=== PATIENT | male | born 1950 | race Caucasian/White ===

== ENCOUNTER 2024-02-02 16:19 | Inpatient (IN) | payer OTHER, SELFPAY ==
[2024-02-02 12:59] VITALS: BP 137/83
[2024-02-02 13:03] VITALS: BMI 22.5
[2024-02-02 13:34] LABS: % Basophils 0.5 % (0-2); % Eosinophils 0.6 % (0-6); % Immature Granulocytes 0.5 % (0-0.5); % Lymphocytes 5.5 % (20.5-51.1); % Neutrophils 86.9 % (42.2-75.2); Absolute Basophils 0.1 10^3/uL (0-0.2); Absolute Eosinophils 0.1 10^3/uL (0-0.7); Absolute Immature Granulocytes 0.1 10^3/uL (0-0.05); Absolute Lymphocytes 0.9 10^3/uL (1.2-3.4); Absolute Neutrophils 14.3 10^3/uL (1.4-6.5); Hematocrit 36.6 % (39.0-52.0); Hemoglobin 11.9 g/dL (13.0-18.0); Mean Corp Hgb Conc. 32.5 g/dL (33.0-37.0); Mean Corpuscular Hgb 32.9 pg (27.0-31.0); Mean Corpuscular Volume 101.1 fL (80.0-94.0); Mean Platelet Volume 9.2 fL (7.4-10.4); Nucleated Red Blood Cells % 0 % (-); Platelet Count 232 10^3/uL (130-400); Red Blood Cell Count 3.62 10^6/uL (4.70-6.10); Red Cell Dist. Width 13.7 % (11.5-14.5); White Blood Cell Count 16.4 10^3/uL (4.8-10.8)
[2024-02-02 14:00] VITALS: BP 140/87
[2024-02-02 14:14] LABS: Blood Urea Nitrogen 19 mg/dl (9-20); Carbon Dioxide 26 mmol/L (22-30); Chloride 98 mmol/L (98-107); Glucose 101 mg/dl (70-99); Sodium 138 mmol/L (135-145); eGFR 15.52
[2024-02-02 14:17] LABS: COVID-19 Antigen Negative (Negative)
--- NOTE | 2024-02-02 14:39 | ED.GENMED ---
History of Present Illness
General
Chief Complaint: Weakness
Source: patient and halfway records
Exam Limitations: none
Time Seen by Provider: 02/02/24 14:13
Nursing documentation reviewed up to this point in time: agreed with
Travel History
Have you had any contact with someone who has COVID-19?: No
Do you have any symptoms of coronavirus? Fever > 100 degrees, chills, cough, shortness of breath, sore throat, loss of taste or smell, muscle aches, or headache?: Yes
Symptoms:: cough
History of Present Illness
History of Present Illness:
73-year-old male from [facility] with history of HTN, ESRD on HD, CVA, gout, HTN, malnutrition, depression ,right knee replacement presents stating he has had a coarse junky cough over the past 24 hours. Denies fever/chills, denies n/v/d/c.
Past History
Past History
ED Past Medical History: CVA, HTN, Renal failure (hemodialysis) and Psychiatric (depression)
ED Past Surgical History: Orthopedic
Review of Systems
Review of Systems
Allergies reviewed?: Yes
All Other Systems: ROS reviewed and negative except as documented in HPI and ROS
Constitutional: Reports chills; Denies fever
EENT: Denies sore throat
Respiratory: Reports cough; Denies trouble breathing
Cardiac: Denies chest pain
ABD/GI: Denies abdominal pain, nausea, vomiting or diarrhea
: Denies dysuria, difficulty voiding or discharge
Musculoskeletal: Reports other (does not ambulate); Denies edema
Skin: Reports other (Right upper chest wall dialysis catheter)
Neurological: Reports no symptoms
Phy Exam
Physical Exam
Physical Exam:
GENERAL: No acute distress. A&Ox3.
CONSTITUTIONAL: 102.0 Rectal
EYES: clear, conjunctivae normal
Neck: Supple
ENMT: moist mucus membranes
RESPIRATORY: Regular respirations, nonlabored, lungs clear. coarse upper airway only sounds, Coarse junky cough, productive, pt swallowing phlegm.
CARDIOVASCULAR: Regular rate and rhythm, no murmurs, no rubs.
GI: Soft, nontender, normal BS
MUSCULOSKELETAL: Moves with ease. Well perfused.
SKIN: Warm, dry, pink, R upper chest wall dialysis catheter, intact, surrounding skin is normal, no swelling, erythema
PSYCH: Normal mood and affect. Well kept, interactive and appropriate
NEUROLOGIC: Awake, alert and oriented. No focal neurological deficits
Course
Orders/Labs/Results
Orders:
Orders
02/02/24 13:23
Basic Metabolic Panel Urgent
CBC/With Diff [Complete Blood Count/With Diff] Urgent
COVID-19 Antigen Urgent
Source: Nasal Swab
02/02/24 13:45
CXR2 [CR Chest - 2 Views ] Urgent
Comment:
Reason For Exam: cough
02/02/24 14:54
CefTRIAXone [Rocephin] 1,000 mg IV NOW STA
02/02/24 Dinner
Regular
At Your Request: Full Participation
02/02/24 15:07
Lactic Acid Q4H
Comment: CANCEL 2nd LACTIC ACID IF 1st LACTIC ACID IS LESS THAN 2
Blood Culture Q30M
ABELINO Source: Blood/Venous
Specimen Description:
Blood Culture Q30M
ABELINO Source: Blood/Venous
Specimen Description:
02/02/24 15:10
Acetaminophen [Tylenol] 1,000 mg PO NOW STA
02/02/24 15:13
Sterile Water [Sterile Water For Injection] 10 ml .ROUTE .[facility]
02/02/24 15:33
INFECTIOUS DISEASE CONSULT Routine
Consulting Provider: Gracia Gee
Was physician already notified: Yes
Reason for consult: sepsis
NEPHROLOGY CONSULT Routine
Consulting Provider: Mariposa Hartley
Was physician already notified: Yes
Reason for consult: ESRD HD
02/02/24 15:50
0.9% Sodium Chloride 500 ml [Nss] 500 ml IV BOLUS
02/02/24 15:52
Admit/Transfer Patient As Directed
Co-Sign Provider:
Level of Care: Inpatient admission
Assign to:: Medical/Surgical
Physician / Group: Elaine
Diagnosis: sepsis
Reason for Hospitalization: sepsis
Expected length of stay greater than two midnights?: Yes
ELOS- Estimated Length of Stay in days: 5
I certify the patient meets the requirements for IP care: Yes
02/02/24 15:53
Vancomycin [Vancocin] 1,500 mg 0.9% Sodium Chloride [Nss] 20 ml 0.9% Sodium Chloride 250 ml [Nss] 250 ml IV NOW
02/02/24 15:55
Code Status As Directed
Resuscitation Status: Do not resuscitate
Reached after discussion with pt or family/Healthcare POA: Yes
02/02/24 15:56
DNR Bracelet Application ONCE
02/02/24 16:00
Cefepime HCl [Maxipime] 1,000 mg IV Q24H
Sterile Water [Sterile Water For Injection] 10 ml IV Q24H
VANCOMYCIN Pharmacy to Dose [VANCOCIN Pharmacy to Dose] 1 each Pharmacy To Prepare [Call Pharmacy To Prepare] 0 ml IV PER PROTOCOL
02/02/24 17:36
0.9% Sodium Chloride 1000 ml [Nss] 1,000 ml IV 125 mls/hr
Acetaminophen [Tylenol] 650 mg PO Q8H PRN
Acetaminophen [Tylenol] 650 mg PO TID
Bisacodyl [Dulcolax] 10 mg RECTAL DAILYPRN PRN
Heparin 5,000 units SC Q8
Nicotine [Nicoderm Transdermal] 14 mg TRANSDERM DAILY
Polyethylene Glycol Powder [Miralax] 17 grams PO DAILYPRN PRN
sodium polystyrene sulfonate 60 ml PO DAILYPRN PRN
02/02/24 17:36
Activity As Directed
Activity Level: With Assistance
Intake/ Output As Directed
Frequency: Per unit guidelines
Vital Signs As Directed
Frequency: Per unit guidelines
O2 Therapy [RESP] Routine
Nasal Cannula Liter Flow: 2 LPM
Titrate/Wean O2 to maintain O2 sat greater than (%): 91
DX Deep Vein Thrombosis Video Routine
02/02/24 18:00
Midodrine [ProAmatine] 5 mg PO BID@1200,1800
Tamsulosin [Flomax] 0.4 mg PO QPM
02/02/24 19:00
Calcium Acetate [Phoslo] 1,334 mg PO MEALS
02/03/24 01:36
Lactic Acid Q4H
Comment: repeat q4 hours x 4 or until less than 2 mmol/L
02/03/24 05:36
Lactic Acid Q4H
Comment: repeat q4 hours x 4 or until less than 2 mmol/L
02/03/24 06:00
Basic Metabolic Panel IN AM
Complete Blood Count/With Diff IN AM
Vancomycin Random IN AM
02/03/24 08:00
Allopurinol [Zyloprim] 100 mg PO DAILY
Atorvastatin [Lipitor] 10 mg PO DAILY
Docusate Sodium [Colace] 200 mg PO DAILY
Ferrous Sulfate [Feosol] 325 mg PO DAILY
Metoprolol Xl [Toprol Xl] 50 mg PO DAILY
Polyethylene Glycol Powder [Miralax] 17 grams PO DAILY
02/03/24 09:00
Midodrine [ProAmatine] 5 mg PO SUTUTHSA@0900
02/04/24 06:00
Basic Metabolic Panel IN AM
Complete Blood Count/With Diff IN AM
02/05/24 06:00
Basic Metabolic Panel IN AM
Complete Blood Count/With Diff IN AM
Midodrine [ProAmatine] 5 mg PO MOWEFR@0600
02/06/24 06:00
Basic Metabolic Panel IN AM
Complete Blood Count/With Diff IN AM
02/07/24 06:00
Basic Metabolic Panel IN AM
Complete Blood Count/With Diff IN AM
02/08/24 06:00
Basic Metabolic Panel IN AM
Complete Blood Count/With Diff IN AM
02/09/24 06:00
Basic Metabolic Panel IN AM
Complete Blood Count/With Diff IN AM
Abnormal Lab Results
02/02/24
13:23
WBC 16.4 H 10^3/uL
(4.8-10.8)
RBC 3.62 L 10^6/uL
(4.70-6.10)
Hgb 11.9 L g/dL
(13.0-18.0)
Hct 36.6 L %
(39.0-52.0)
MCV 101.1 H fL
(80.0-94.0)
MCH 32.9 H pg
(27.0-31.0)
MCHC 32.5 L g/dL
(33.0-37.0)
Abs Immat Gran (auto) 0.1 H 10^3/uL
(0-0.05)
Absolute Neuts (auto) 14.3 H 10^3/uL
(1.4-6.5)
Absolute Lymphs (auto) 0.9 L 10^3/uL
(1.2-3.4)
Absolute Monos (auto) 1.0 H 10^3/uL
(0.1-0.6)
Neutrophils % 86.9 H %
(42.2-75.2)
Lymphocytes % 5.5 L %
(20.5-51.1)
Creatinine 3.9 H mg/dL
(0.7-1.3)
Glucose 101 H mg/dl
(70-99)
02/02/24 13:23
02/02/24 13:23
Vital Signs
Initial and Last Documented VS:
Initial Vital Signs
Temp Pulse Resp BP Pulse Ox
98.1 F 99 18 137/83 95
02/02/24 12:59 02/02/24 12:59 02/02/24 12:59 02/02/24 12:59 02/02/24 12:59
Last Documented Vital Signs
Temp Pulse Resp BP Pulse Ox
98.3 F 92 16 144/87 96
02/02/24 18:24 02/02/24 18:24 02/02/24 18:24 02/02/24 18:24 02/02/24 18:24
MDM/Problems Addressed
Differential Diagnosis Includes:
PNA, COPD
MDM/Problems Addressed:
73-year-old male from [facility] with history of HTN, ESRD on HD, CVA, gout, HTN, malnutrition, depression ,right knee replacement presents stating he has had a coarse junky cough over the past 24 hours. Denies fever/chills, denies n/v/d/c..
Temp 102 R for this examiner, coarse junky cough
1430:
CBC: WBC 16.4
CMP: No clinically significant abnormality, consistent with his ESRD
Rapid COVID test is negative
CXR: Radiology report read: IMPRESSION:
1. Clear lungs.
2. No significant change compared to prior study.
Pulse ox 88% RA placed on O2 2L NC improved to 93%
Plan: Admit: Pneumonia, hypoxemia: IV antibiotics, blood cultures pending.
Hospitalist notified of admission
*Critical Care Note
Total Time (30-74mins, 75-104mins- exclusive of procedures): Not Applicable
ED Attending Note
-
Portions of this chart may have been created with voice recognition software.� Occasional wrong word or��sound alike� substitutions may have occurred due to the inherent limitations of voice recognition software.
Discharge Plan
Departure
Patient Disposition: Admit
Date of Disposition: 02/02/24
Time of Disposition: 15:03
Admit to: Med/Surg
Presentation/result/management discussed w/ accepting MD/DO: Hospitalist
Condition: Fair
Discharge Problem:
End stage renal disease, Pneumonia
Interventions
Interventions:
*Risk Screen - Suicide Last Done: 02/02/24 12:59
*General Assessment Last Done: 02/02/24 12:59
*Neglect/Abuse Screening Last Done: 02/02/24 12:59
ED- Fall Risk Assessment Last Done: 02/02/24 13:03
*ED COVID-19 Vaccine History Last Done: 02/02/24 15:17
*Nursing Disposition Last Done: 02/02/24 17:31
ED- Cardiac Assessment Last Done: 02/02/24 13:03
ED- Neurological Assessment Last Done: 02/02/24 13:03
ED- Pulmonary Assessment Last Done: 02/02/24 13:03
Discharge Date and Time
Discharge Date/Time: 02/02/24 17:32
[2024-02-02] MEDS: ROCEPHIN 1000 MG IV (15:14)
[2024-02-02] MEDS: TYLENOL 1000 MG PO (15:15)
[2024-02-02 15:18] VITALS: BP 103/81
--- NOTE | 2024-02-02 15:22 | HPS.HSE ---
Family Physician
-
Family Physician:
Chief Complaint
-
weakness
History of Present Illness
73 y/o M with PMHx:
ESRD on HD
Anemia of chronic disease
Hyperlipidemia
Chronic pain syndrome
Essential hypertension
Gout
BPH
who presents with fever and felt weak. He also reports dry cough. He does make some urine but denies any change in frequency or consistency of the urine. Denies dysuria or hematuria. Denies chest pain, shortness of breath, palpitations. He does
report some lightheadedness. Denies any headache or neck stiffness. Denies any nausea, vomiting, diarrhea. Patient is a fairly poor historian.
Medical History
Past Medical History
Past Medical History: Reports Other (as per HPI)
Past Surgical History: Reports Other (N/A)
Social History
Tobacco: Smoker
Alcohol: None
Drug: None
Family History
Family History: Not pertinent
Allergies / Home Medications
Allergies reflects when Allergies were last updated in [employer].
Home Medications with original date entered in [employer]
Allergy/Medication List:
Allergies
Allergy/AdvReac Type Severity Reaction Status Date / Time
No Known Allergies Allergy Verified 02/02/24 12:58
Home Medications
acetaminophen 325 mg tablet 650 mg PO Q8H PRN fever>100.4 06/08/23
atorvastatin 10 mg tablet 10 mg PO DAILY High Cholesterol 06/08/23
bisacodyl 10 mg rectal suppository (Dulcolax (bisacodyl)) 10 mg [place] DAILY PRN if sorbitol is ineffective 06/08/23
calcium acetate(phosphat bind) 667 mg capsule 1,334 mg PO MEALS Kidney Disease 06/08/23
docusate sodium 100 mg capsule (Colace) 200 mg PO DAILY Constipation 06/08/23
ferrous sulfate 325 mg (65 mg iron) tablet 325 mg PO DAILY Supplement 06/08/23
metoprolol succinate 50 mg tablet,extended release 24 hr 50 mg PO DAILY Blood Pressure 06/08/23
midodrine 5 mg tablet 5 mg PO MOWEFR@0600 Blood Pressure 06/08/23
nicotine 14 mg/24 hr daily transdermal patch 1 patch transdermal DAILY Smoking Cessation 06/08/23
polyethylene glycol 3350 17 gram oral powder packet (Miralax) 17 g PO DAILY Constipation 06/08/23
sorbitol 70 % solution 30 ml PO DAILYPRN PRN constipation 06/08/23
tamsulosin 0.4 mg capsule 0.4 mg PO QPM Urinary Issue 06/08/23
torsemide 20 mg tablet 20 mg PO Q48H Fluid Retention/Swelling 06/08/23
trazodone 100 mg tablet 100 mg PO HS Sleep 06/08/23
allopurinol 100 mg tablet 100 mg PO DAILY #30 tabs 06/20/23
acetaminophen 325 mg tablet 650 mg PO TID 09/20/23
mirtazapine 15 mg tablet 22.5 mg PO HS 09/20/23
vancomycin 750 mg/150 mL in 0.9% sodium chloride intravenous piggyback 750 mg (150 mL) IV ONCE #0 mL 09/29/23
melatonin 5 mg tablet 5 mg PO HS 02/02/24
midodrine 5 mg tablet 5 mg PO BID@1200,1800 02/02/24
midodrine 5 mg tablet 5 mg PO SUTUTHSA@0900 02/02/24
oxycodone 5 mg tablet 5 mg PO Q4HPRN PRN moderate pain 02/02/24
polyethylene glycol 3350 17 gram oral powder packet (Miralax) 17 g PO DAILYPRN PRN constipation 02/02/24
sodium polystyrene sulfonate 15 gram/60 mL oral suspension 60 ml PO DAILYPRN PRN missed dialysis 02/02/24
Review of Systems
-
History Source: Patient
A 12 point ROS was completed and negative except as noted: Yes
Physical Exam
Vital Signs
Vital Signs
Temp Pulse Resp BP Pulse Ox
102 F H 80 26 140/87 87
02/02/24 15:05 02/02/24 14:00 02/02/24 14:00 02/02/24 14:00 02/02/24 15:15
Physical Exam
General: Other (.)
Laboratory Results
-
02/02/24 13:23
02/02/24 13:23
Laboratory Results
Total Bilirubin Cancelled 02/02/24 13:23
AST Cancelled 02/02/24 13:23
ALT Cancelled 02/02/24 13:23
Alkaline Phosphatase Cancelled 02/02/24 13:23
Impression/Plan
-
Gen: NAD, AAOx3. Appears chronically ill.
Eyes: EOMI, PERRLA, no scleral icterus.
Neck: supple.
CV: RRR, +S1/S2, no m/r/g.
Resp: CTAB, no rales, wheezes, or rhonchi.
Abd: +BS, soft, NT, ND
Skin: No rashes.
Neuro: CN 2-12 intact, non-focal.
Psych: Flat affect.
CXR: Clear lungs. No significant change compared to prior study.
Sepsis:
-With acute metabolic encephalopathy
-CXR clear
-h/o sepsis due to HD cath in September 2023
-IV Vanco/Cefepime
-c/s ID
-follow BCxs
-IVFs @ 125cc/hr
ESRD: c/s renal for HD
Anemia of chronic disease: Hb appears hemoconcentrated
Hyperlipidemia: Continue statin
Chronic pain syndrome, chronic opioid use with dependence: Hold narcotics at this time until mentation improves.
Essential hypertension: Continue beta-ty, hold torsemide
Gout: Continue allopurinol
BPH: Continue Flomax
DNR: Confirmed with the patient in the ER
Heparin
[2024-02-02 15:26] LABS: Lactic Acid 1.7 mmol/L (0.7-2.0)
[2024-02-02 16:00] VITALS: BP 131/63
--- NOTE | 2024-02-02 16:06 | PHA.VAN.IN ---
Assessment
- Assessment
Renal Function: Patient has ESRD, on chronic Hemodialysis
Hemodialysis Schedule: Other (UNKNOWN AT THIS TIME)
Concomitant Antimicrobials: CEFEPIME
- Previous Dosing Experience
Previous Regimen: DOSING BY RANDOM LEVELS
Date of Regimen: 09/20/23
Provided Trough of: UNKNOWN
Provided AUC of: UNKNOWN
Patient's SCR is: Elevated compared to previous dosing experience (09/20/23 SCR = 2.4)
Patient's weight is: Elevated compared to previous dosing experience (09/20/23 WT = 60.6 KG)
Plan
- Plan
Initial / Loading Dose: 1500MG
Maintenance Regimen: DOSING BY RANDOM LEVELS
Monitoring: RANDOM VANCOMYCIN LEVEL 02/03/24 AM
Pharmacokinetics Vancomycin I
- -
Patient Age: 73
Patient Sex: Male
Vancomycin Day #: 1
Indication: Bacteremia
Requesting Provider: ISRRAEL
Height / Weight:
Height 5 ft 7 in
Actual Weight 65 kg
- Vital Signs / Lab Results
Temp Pulse Resp BP Pulse Ox
102 F H 80 26 140/87 87
02/02/24 15:05 02/02/24 14:00 02/02/24 14:00 02/02/24 14:00 02/02/24 15:15
Lab Results - Hematology
02/02/24
13:23
WBC 16.4 H
Lab Results - Chemistry
02/02/24
13:23
BUN 19
Creatinine 3.9 H
Albumin Cancelled
02/02/24
15:07
Lactic Acid 1.7
[2024-02-02] MEDS: NSS 500 IV (16:12)
--- NOTE | 2024-02-02 16:17 | CM ---
I met with Froilan in the ED. He has been at [facility] for about 6 months which is the same timeframe when he started dialysis treatments. He believes the dialysis unit is in [place], but he does not recall the name of the unit. He goes --
for dialysis.
Prior to [facility] he was living with his sister. Froilan said he and his sister have always been close.
Call placed to [facility] and left for admissions requesting bed hold status. Await return call
--- NOTE | 2024-02-02 16:18 | W.CON.NEPH ---
Consultation
-
Date/Time Consultation Requested: 02/02/2024 4:00PM
Date/Time Consultation Performed: 02/02/2024 4:19PM
Requesting Provider: Matheus Henry
Performing Provider: Mariposa Hartley
Reason for Consultation: ESRD on HD
Medical History
-
Chief Complaint: ESRD on HD
History of Present Illness:
Mr. Allan is a 73-year-old male who hashistory of ESRD on dialysis since May 2023 on Monday,Monday, Monday at [facility] through tunneled catheter, relative hypotension on chronic midodrine, hyperphosphatemia on calcium acetate, still
makes some urine on torsemide every 48 hours, who presents tot [facility] with fevers and feeling weak as well as sore throat. States that he was feeling well after completing his HD treatment this AM, then developed sore throat and fatigue. He
denies any chills, nausea, vomiting, or diarrhea. No abdominal pain. He has a chronic intermittent cough. No change. No shortness of breath.
Past Medical History
ESRD on HD MWF
Anemia of chronic disease
Hyperlipidemia
Chronic pain syndrome with narcotic dependence
History of gout
Essential hypertension
Gout
BPH
DLD
Insomnia
Past Medical History: None
Social History
Tobacco: Former Smoker (quit 2022)
Alcohol: None
Drug: None
Living: Assisted Living
Family History
Significant for sister with CKD. Maternal aunt with
ESRD, had transplant. Paternal cousin also with CKD.
Allergies / Home Medications
Allergy/AdvReac Type Severity Reaction Status Date / Time
No Known Allergies Allergy Verified 02/02/24 12:58
�Medication �Instructions �Recorded �Confirmed �Type
acetaminophen 325 mg tablet 650 mg PO Q8H PRN fever>100.4 06/08/23 02/02/24 History
atorvastatin 10 mg tablet 10 mg PO DAILY High Cholesterol 06/08/23 02/02/24 History
bisacodyl 10 mg rectal suppository 10 mg MS DAILY PRN if sorbitol is 06/08/23 02/02/24 History
(Dulcolax (bisacodyl)) ineffective
calcium acetate(phosphat bind) 667 1,334 mg PO MEALS Kidney Disease 06/08/23 02/02/24 History
mg capsule
docusate sodium 100 mg capsule 200 mg PO DAILY Constipation 06/08/23 02/02/24 History
(Colace)
ferrous sulfate 325 mg (65 mg 325 mg PO DAILY Supplement 06/08/23 02/02/24 History
iron) tablet
metoprolol succinate 50 mg 50 mg PO DAILY Blood Pressure 06/08/23 02/02/24 History
tablet,extended release 24 hr
midodrine 5 mg tablet 5 mg PO MOWEFR@0600 Blood Pressure 06/08/23 02/02/24 History
polyethylene glycol 3350 17 gram 17 g PO DAILY Constipation 06/08/23 02/02/24 History
oral powder packet (Miralax)
sorbitol 70 % solution 30 ml PO DAILYPRN PRN constipation 06/08/23 02/02/24 History
tamsulosin 0.4 mg capsule 0.4 mg PO QPM Urinary Issue 06/08/23 02/02/24 History
torsemide 20 mg tablet 20 mg PO Q48H Fluid 06/08/23 02/02/24 History
Retention/Swelling
trazodone 100 mg tablet 100 mg PO HS Sleep 06/08/23 02/02/24 History
allopurinol 100 mg tablet 100 mg PO DAILY #30 tabs 06/20/23 02/02/24 Rx
mirtazapine 15 mg tablet 22.5 mg PO HS 09/20/23 02/02/24 History
melatonin 5 mg tablet 5 mg PO HS 02/02/24 02/02/24 History
midodrine 5 mg tablet 5 mg PO BID@1200,1800 02/02/24 02/02/24 History
midodrine 5 mg tablet 5 mg PO SUTUTHSA@0900 02/02/24 02/02/24 History
oxycodone 5 mg tablet 5 mg PO Q4HPRN PRN moderate pain 02/02/24 02/02/24 History
polyethylene glycol 3350 17 gram 17 g PO DAILYPRN PRN constipation 02/02/24 02/02/24 History
oral powder packet (Miralax)
sodium polystyrene sulfonate 15 60 ml PO DAILYPRN PRN missed 02/02/24 02/02/24 History
gram/60 mL oral suspension dialysis
Review of Systems
-
History Source: Patient
All other systems: Negative unless noted
Constitutional: Fatigue
EENT: Sore Throat
Respiratory: Cough
Physical Exam
Vital Signs
Vital Signs
Temp Pulse Resp BP Pulse Ox
102 F H 80 26 140/87 87
02/02/24 15:05 02/02/24 14:00 02/02/24 14:00 02/02/24 14:00 02/02/24 15:15
Lab Results
WBC 16.4 10^3/uL (4.8-10.8) H 02/02/24 13:23
RBC 3.62 10^6/uL (4.70-6.10) L 02/02/24 13:23
Hgb 11.9 g/dL (13.0-18.0) L 02/02/24 13:23
Hct 36.6 % (39.0-52.0) L 02/02/24 13:23
Plt Count 232 10^3/uL (130-400) 02/02/24 13:23
Sodium 138 mmol/L (135-145) 02/02/24 13:23
Potassium mmol/L (3.5-5.1) 02/02/24 13:23
Chloride 98 mmol/L (98-107) 02/02/24 13:23
Carbon Dioxide 26 mmol/L (22-30) 02/02/24 13:23
BUN 19 mg/dl (9-20) 02/02/24 13:23
Creatinine 3.9 mg/dL (0.7-1.3) H 02/02/24 13:23
eGFR 15.52 02/02/24 13:23
Glucose 101 mg/dl (70-99) H 02/02/24 13:23
Calcium 9.0 mg/dl (8.4-10.2) 02/02/24 13:23
Albumin Cancelled 02/02/24 13:23
Assessment/Plan
-
IMP:
Episode of fever
Leukocytosis
Anemia
End-stage renal disease on hemodialysis-since 05/2023-[facility]
Dyslipidemia
Gout
chronic pain with-narcotic dependence
Chronic hypotension on midodrine
ambulatory dysfunction
Insomnia
depression
former smoker
Hypoalbuminemia
h/o BPH
hyperphosphatemia
Plan:
Recent ESRD on HD a/w fever and sore throat
hemodynamically stable
await cx data, abx per primary, note pt has tunneled catheter
monitor hb, adequate Fe stores
cont diuretics and midodrine
resume phos binders
HD next on Monday
[2024-02-02] MEDS: MAXIPIME 1000 MG IV (16:19)
[2024-02-02] MEDS: STERILE WATER FOR INJECTION 10 ML IV (16:19)
[2024-02-02] MEDS: VANCOCIN 300 MG IV (16:51)
[2024-02-02] MEDS: VANCOCIN 300 ML IV (16:51)
[2024-02-02 18:24] VITALS: BP 144/87
[2024-02-02] MEDS: NSS 1000 IV (19:19)
[2024-02-02] MEDS: NICODERM TRANSDERMAL 14 MG TRANSDERM (19:21)
[2024-02-02] MEDS: FLOMAX 0.400000000000000022 MG PO (19:21)
[2024-02-02] MEDS: ProAmatine 5 MG PO (19:21)
[2024-02-02] MEDS: HEPARIN 5000 UNITS SC (19:21)
[2024-02-02] MEDS: TYLENOL 650 MG PO ×2 (19:24→21:34)
[2024-02-02] MEDS: PHOSLO 1334 MG PO (19:49)
[2024-02-02 23:00] VITALS: BP 118/79
[2024-02-03] MEDS: HEPARIN SC ×3 (00:11→15:50)
[2024-02-03] MEDS: NSS 1000 IV (01:51)
[2024-02-03 06:00] VITALS: BMI 21.4
[2024-02-03 07:05] VITALS: BP 153/77
[2024-02-03 07:19] LABS: % Basophils 0.8 % (0-2); % Eosinophils 4.9 % (0-6); % Immature Granulocytes 0.5 % (0-0.5); % Lymphocytes 13.1 % (20.5-51.1); % Neutrophils 73.7 % (42.2-75.2); Absolute Basophils 0.1 10^3/uL (0-0.2); Absolute Eosinophils 0.6 10^3/uL (0-0.7); Absolute Immature Granulocytes 0.1 10^3/uL (0-0.05); Absolute Lymphocytes 1.6 10^3/uL (1.2-3.4); Absolute Monocytes 0.8 10^3/uL (0.1-0.6); Absolute Neutrophils 8.9 10^3/uL (1.4-6.5); Hematocrit 32.8 % (39.0-52.0); Hemoglobin 10.8 g/dL (13.0-18.0); Mean Corp Hgb Conc. 32.9 g/dL (33.0-37.0); Mean Corpuscular Hgb 32.9 pg (27.0-31.0); Mean Platelet Volume 9.6 fL (7.4-10.4); Nucleated Red Blood Cells % 0 % (-); Platelet Count 208 10^3/uL (130-400); Red Blood Cell Count 3.28 10^6/uL (4.70-6.10); Red Cell Dist. Width 13.8 % (11.5-14.5)
[2024-02-03 07:44] LABS: Vancomycin Random 18.7 ug/ml
[2024-02-03 07:54] LABS: Blood Urea Nitrogen 31 mg/dl (9-20); Calcium 8.9 mg/dl (8.4-10.2); Carbon Dioxide 24 mmol/L (22-30); Chloride 104 mmol/L (98-107); Estimated Creatinine Clearance 10 ml/min; Glucose 91 mg/dl (70-99); Potassium 3.9 mmol/L (3.5-5.1); Sodium 140 mmol/L (135-145); eGFR 10.06
--- NOTE | 2024-02-03 08:01 | W.PN.HOSP.TC ---
Today's Communication/Plan
-
see bold
Assessment / Plan
Assessment / Plan
Gen: NAD, AAOx3
Eyes: EOMI, PERRLA, no scleral icterus.
Neck: supple.
CV: remains RRR, +S1/S2, no m/r/g.
Resp: remains CTAB, no rales, wheezes, or rhonchi.
Abd: +BS, soft, NT, ND
Skin: No rashes.
Neuro: CN 2-12 intact, non-focal.
Psych: normal mood and affect.
CXR: Clear lungs. No significant change compared to prior study.
Sepsis:
-With acute metabolic encephalopathy on admission
-CXR clear
-h/o sepsis due to HD cath in September 2023
-IV Vanco/Cefepime
-c/s ID
-follow BCxs
-IVFs @ 125cc/hr
-may need to remove/replace HD cath
Other problems:
ESRD: c/s renal for HD
Anemia of chronic disease: Hb appears hemoconcentrated
Hyperlipidemia: Continue statin
Chronic pain syndrome, chronic opioid use with dependence: Holding narcotics at this time until mentation improves.
Essential hypertension: Continue beta-ty, holding torsemide
Gout: Continue allopurinol
BPH: Continue Flomax
DNR: Confirmed with the patient in the ER
Heparin
Anticipated Discharge: > 48 hours
Subjective/Interval History
-
Date of Service: February 03, 2024
No new complaints.
Objective Data
-
Labs:
Laboratory Results
02/03/24
06:59
WBC 12.0 H
Hgb 10.8 L
Hct 32.8 L
Plt Count 208
Sodium 140
Potassium 3.9
Chloride 104
Carbon Dioxide 24
BUN 31 H
Creatinine 5.6 H*
Glucose 91
Calcium 8.9
Vital Signs:
Vital Signs
Temp Pulse Resp BP Pulse Ox
98.5 F 72 20 118/79 100
02/02/24 23:00 02/02/24 23:00 02/02/24 23:00 02/02/24 23:00 02/02/24 23:00
I&O
02/02/24 02/03/24 02/04/24
06:59 06:59 06:59
Intake Total 1739 174
Balance 1739 174
--- NOTE | 2024-02-03 08:37 | PHA.VAN.FU ---
Vancomycin Assessment / Plan
- Assessment
Hemodialysis Schedule: MWF (next HD 02/04)
WBC's are: Trending Down
In the past 24 hrs, patient has been: Febrile (102F)
Concomitant Antimicrobials: cefepime
- Assessment - Therapeutic Drug Monitoring
Random Level: 18.7
- Dosing Plan
Dosing by Level: Hold off on dosing today
- Monitoring Plan
No level(s) ordered at this time: consider pre-hd level 02/04
- Follow Up
Pharmacy will continue to follow.
Vancomycin Follow UP
- -
Patient Age: 73
Patient Sex: Male
Vancomycin Day #: 2
Indication: Bacteremia
Requesting Provider: ISRRAEL
Height / Weight:
Height 5 ft 7 in
Actual Weight 61.944 kg
- Vital Signs / Lab Results
Temp Pulse Resp BP Pulse Ox
98.0 F 73 17 153/77 95
02/03/24 07:05 02/03/24 07:05 02/03/24 07:05 02/03/24 07:05 02/03/24 07:05
Lab Results - Hematology
02/02/24 02/03/24
13:23 06:59
WBC 16.4 H 12.0 H
Lab Results - Chemistry
02/02/24 02/03/24
13:23 06:59
BUN 19 31 H
Creatinine 3.9 H 5.6 H*
Estimated Creat Clear 10
Albumin Cancelled
02/02/24 02/02/24 02/02/24
15:07 17:36 19:00
Lactic Acid 1.7 Cancelled Cancelled
02/02/24 02/03/24 02/03/24
21:36 01:36 05:36
Lactic Acid Cancelled Cancelled Cancelled
Therapeutic Drug Monitoring
Random Vancomycin 18.7 ug/ml 02/03/24 06:59
[2024-02-03] MEDS: NICODERM TRANSDERMAL 14 MG TRANSDERM (10:02)
[2024-02-03] MEDS: ProAmatine 5 MG PO ×3 (10:02→17:22)
[2024-02-03] MEDS: PHOSLO 1334 MG PO ×3 (10:02→17:22)
[2024-02-03] MEDS: TOPROL XL 50 MG PO (10:03)
[2024-02-03] MEDS: LIPITOR 10 MG PO (10:03)
[2024-02-03] MEDS: FEOSOL 325 MG PO (10:04)
[2024-02-03] MEDS: MIRALAX 17 GRAMS PO (10:04)
[2024-02-03] MEDS: COLACE 200 MG PO (10:04)
[2024-02-03] MEDS: ZYLOPRIM 100 MG PO (10:04)
[2024-02-03] MEDS: TYLENOL 650 MG PO ×3 (10:04→21:18)
--- NOTE | 2024-02-03 10:43 | W.PN.NEPH.PH ---
Today's Communication / Plan
-
- HD plan for Monday
- stop fluids
Assessment/Plan
-
IMP:
Episode of fever
Leukocytosis
Anemia
End-stage renal disease on hemodialysis-since 05/2023-[facility]
Dyslipidemia
Gout
chronic pain with-narcotic dependence
Chronic hypotension on midodrine
ambulatory dysfunction
Insomnia
depression
former smoker
Hypoalbuminemia
h/o BPH
hyperphosphatemia
Plan:
Recent ESRD on HD a/w fever and sore throat
hemodynamically stable
await cx data, abx per primary, note pt has tunneled catheter
monitor hb, at goal, no iron while c/f infection
cont diuretics and midodrine
resume phos binders
HD next on Monday
-
-
Date of Service: February 03, 2024
CC / HPI / ROS
-
Chief Complaint:
ESRD
History of Present Illness:
ESRD on HD MWF via [facility]
had some lightheadedness and sore throat
Review of Systems:
awaiting blood culture data
Labs
-
Labs:
WBC 12.0 10^3/uL (4.8-10.8) H 02/03/24 06:59
RBC 3.28 10^6/uL (4.70-6.10) L 02/03/24 06:59
Hgb 10.8 g/dL (13.0-18.0) L 02/03/24 06:59
Hct 32.8 % (39.0-52.0) L 02/03/24 06:59
Plt Count 208 10^3/uL (130-400) 02/03/24 06:59
Sodium 140 mmol/L (135-145) 02/03/24 06:59
Potassium 3.9 mmol/L (3.5-5.1) 02/03/24 06:59
Chloride 104 mmol/L (98-107) 02/03/24 06:59
Carbon Dioxide 24 mmol/L (22-30) 02/03/24 06:59
BUN 31 mg/dl (9-20) H 02/03/24 06:59
Creatinine 5.6 mg/dL (0.7-1.3) H* 02/03/24 06:59
eGFR 10.06 02/03/24 06:59
Glucose 91 mg/dl (70-99) 02/03/24 06:59
Calcium 8.9 mg/dl (8.4-10.2) 02/03/24 06:59
Albumin Cancelled 02/02/24 13:23
Physical Exam
-
Vital Signs:
Vital Signs
Temp Pulse Resp BP Pulse Ox
98.0 F 73 17 153/77 95
02/03/24 07:05 02/03/24 07:05 02/03/24 07:05 02/03/24 07:05 02/03/24 07:05
Cardiovascular:: Regular rate and rhythm
Respiratory:: Bilateral: Coarse
Lung Excursion:: Normal
Abdomen:: Nontender and Soft
Bowel Sounds:: Normal
Extremity Edema:: None: Bilateral:
Kiser Catheter: No
Other Findings::
TDC without erythema
--- NOTE | 2024-02-03 15:15 | CON.ID ---
Consultation
-
Date/Time Consultation Requested: 02/02/24 15:33
Date/Time Consultation Performed: 02/03/24 15:15
Requesting Provider: Dr Henry
Performing Provider: Dr Gee
Reason for Consultation: sepsis
Chief Complaint / Past History
Chief Complaint
weakness
History of Present Illness
Mr Muller is a 73 year old male with ESRD on HD via tunneled cath, who presented here for fever, weakness, no specific symptoms beyond dry cough and sore throat. No: dysuria or hematuria, chest pain, shortness of breath, palpitations, headache or
neck stiffness, nausea, vomiting, diarrhea. Patient is a poor historian. Makes a little urine. Suspected line infection 09/2023 and line removed and replaced
Since arrival here Tmax 102 on arrival - no further fevers since, bp stable, HR normal, wbc initially 16 now 12, hgb 10.8, plt 208, L shift noted on arrival now normal, k 3.9, cr 5.6, lactic acid 1.7, covid ag neg, CXR clear lungs, blood cultures no
growth to date, currently on vanc/cefepime. ID is consulted for assistance with management.
Past History
Additional Past Medical History:
ESRD on HD
Anemia of chronic disease
Hyperlipidemia
Chronic pain syndrome
Essential hypertension
Gout
BPH
Past Surgical History: None
Allergy History:
No Known Allergies Allergy (Verified 02/02/24 12:58)
Medications Reviewed: Yes
Social History
Tobacco: Smoker
Alcohol: None
Drug: None
Family History
Family History: Not Pertinent
Review of Systems
Review of Systems
General: Fever and Chills
All systems: All other systems were reviewed and were negative
Vital Signs
Temp Pulse Resp BP Pulse Ox
98.0 F 73 17 153/77 95
02/03/24 07:05 02/03/24 07:05 02/03/24 07:05 02/03/24 07:05 02/03/24 07:05
Physical Exam
Physical Exam
Constitutional: No Acute Distress
Cardiovascular: Regular Rate and S1/S2; Negative Murmur or Rub
Pulmonary: Clear and Symmetric; Negative Wheezes, Rales or Rhonchi
Gastrointestinal: Soft, Non Tender, Non Distended and Normal Bowel Sounds
Skin: Warm and Dry; Negative Rash or Jaundice
Lines: HD Cath (no erythema, warmth, tenderness or drainage)
Lab / Diagnostic Study Results
02/03/24 06:59
02/03/24 06:59
Abs Immat Gran (auto) 0.1 10^3/uL (0-0.05) H 02/03/24 06:59
Absolute Neuts (auto) 8.9 10^3/uL (1.4-6.5) H 02/03/24 06:59
Absolute Lymphs (auto) 1.6 10^3/uL (1.2-3.4) 02/03/24 06:59
Absolute Monos (auto) 0.8 10^3/uL (0.1-0.6) H 02/03/24 06:59
Absolute Basos (auto) 0.1 10^3/uL (0-0.2) 02/03/24 06:59
Immature Gran % 0.5 % (0-0.5) 02/03/24 06:59
Neutrophils % 73.7 % (42.2-75.2) 02/03/24 06:59
Lymphocytes % 13.1 % (20.5-51.1) L 02/03/24 06:59
Monocytes % 7.0 % (1.7-9.3) 02/03/24 06:59
Eosinophils % 4.9 % (0-6) 02/03/24 06:59
Basophils % 0.8 % (0-2) 02/03/24 06:59
Lactic Acid Cancelled 02/03/24 05:36
Microbiology Results
Micro:
02/02/24 15:07 Blood Culture - Preliminary
Blood/Venous No Growth in 24 hours- Final report to follow
02/02/24 15:07 Blood Culture - Preliminary
Blood/Venous No Growth in 24 hours- Final report to follow
Assessment / Plan
URI most likely viral
ESRD on HD
- denies further symptoms at this point
- follow blood cultures another day - if these remain negative will stop antibiotics
- follow clinically
--- NOTE | 2024-02-03 15:26 | CM ---
Case management following for d/c planning
Received consult - advance directive/discharge planning
Given packet on Advance Directives to Review
Prefers to return to [facility] when medically ready - will send updates in [facility]
Plan - anticipate return to [facility] when medically ready
[2024-02-03 15:29] VITALS: BP 144/69
[2024-02-03] MEDS: STERILE WATER FOR INJECTION 10 ML IV (16:02)
[2024-02-03] MEDS: MAXIPIME 1000 MG IV (16:03)
[2024-02-03] MEDS: FLUSH (NSS) 2 FLUSH IV (16:05)
[2024-02-03] MEDS: FLOMAX 0.400000000000000022 MG PO (17:22)
[2024-02-03 23:00] VITALS: BP 125/75
[2024-02-04] MEDS: HEPARIN SC ×4 (00:20→23:40)
[2024-02-04 07:00] VITALS: BP 136/69
--- NOTE | 2024-02-04 07:45 | W.PN.HOSP.TC ---
Today's Communication/Plan
-
see bold
Assessment / Plan
Assessment / Plan
Gen: NAD, AAOx3
Eyes: EOMI, PERRLA, no scleral icterus.
Neck: supple.
CV: continues to remain RRR, +S1/S2, no m/r/g.
Resp: continues to remain CTAB, no rales, wheezes, or rhonchi.
Abd: +BS, soft, NT, ND
Skin: No rashes.
Neuro: remains CN 2-12 intact, non-focal.
Psych: normal mood and affect.
02/02/24 15:07 Blood/Venous Blood Culture - Preliminary
No Growth in 24 hours- Final report to follow
02/02/24 15:07 Blood/Venous Blood Culture - Preliminary
No Growth in 24 hours- Final report to follow
CXR: Clear lungs. No significant change compared to prior study.
Sepsis:
-With acute metabolic encephalopathy on admission
-CXR clear
-h/o sepsis due to HD cath in September 2023
-was on IVFs, now off
-IV Vanco/Cefepime
-ID following
-BCxs NGTD. If BCxs NG at 48 hours will likely stop abx as likely diagnosis will have been viral URI.
Other problems:
ESRD: renal following for HD
Anemia of chronic disease: Hb appears hemoconcentrated
Hyperlipidemia: Continue statin
Chronic pain syndrome, chronic opioid use with dependence: Holding narcotics at this time until mentation improves.
Essential hypertension: Continue beta-ty, holding torsemide
Gout: Continue allopurinol
BPH: Continue Flomax
DNR: Confirmed with the patient in the ER
Heparin
Anticipated Discharge: Within 24 hours
Subjective/Interval History
-
Date of Service: February 04, 2024
Denies CP/SOB.
Objective Data
-
Labs:
Laboratory Results
02/04/24
07:13
WBC Pending
Hgb Pending
Hct Pending
Plt Count Pending
Sodium Pending
Potassium Pending
Chloride Pending
Carbon Dioxide Pending
BUN Pending
Creatinine Pending
Glucose Pending
Calcium Pending
Vital Signs:
Vital Signs
Temp Pulse Resp BP Pulse Ox
98.2 F 54 16 125/75 97
02/03/24 23:00 02/03/24 23:00 02/03/24 23:00 02/03/24 23:00 02/03/24 23:00
I&O
02/03/24 02/04/24 02/05/24
06:59 06:59 06:59
Intake Total 1740 / 1740 720 / 720 240 / 240
Output Total 200 / 200 150 / 150
Balance 1740 / 1740 520 / 520 90 / 90
[2024-02-04 07:55] LABS: % Basophils 0.8 % (0-2); % Eosinophils 8.7 % (0-6); % Immature Granulocytes 0.4 % (0-0.5); % Lymphocytes 11.5 % (20.5-51.1); % Monocytes 8.1 % (1.7-9.3); % Neutrophils 70.5 % (42.2-75.2); Absolute Basophils 0.1 10^3/uL (0-0.2); Absolute Eosinophils 0.9 10^3/uL (0-0.7); Absolute Lymphocytes 1.2 10^3/uL (1.2-3.4); Absolute Monocytes 0.8 10^3/uL (0.1-0.6); Absolute Neutrophils 7.1 10^3/uL (1.4-6.5); Hematocrit 28.1 % (39.0-52.0); Hemoglobin 9.6 g/dL (13.0-18.0); Mean Corp Hgb Conc. 34.2 g/dL (33.0-37.0); Mean Corpuscular Hgb 33.7 pg (27.0-31.0); Mean Corpuscular Volume 98.6 fL (80.0-94.0); Mean Platelet Volume 9.7 fL (7.4-10.4); Nucleated Red Blood Cells % 0 % (-); Platelet Count 195 10^3/uL (130-400); Red Blood Cell Count 2.85 10^6/uL (4.70-6.10); Red Cell Dist. Width 13.7 % (11.5-14.5)
--- NOTE | 2024-02-04 08:14 | PHA.VAN.FU ---
Vancomycin Assessment / Plan
- Assessment
Hemodialysis Schedule: MWF (next HD 02/04)
WBC's are: Trending Down
In the past 24 hrs, patient has been: Afebrile
Concomitant Antimicrobials: CEFEPIME
- Dosing Plan
Dosing by Level: Hold off on dosing today
- Monitoring Plan
Random Level: 02/04 IN AM PRE-HD
- Follow Up
Pharmacy will continue to follow.
Vancomycin Follow UP
- -
Patient Age: 73
Patient Sex: Male
Vancomycin Day #: 3
Indication: Bacteremia
Requesting Provider: ISRRAEL
Height / Weight:
Height 5 ft 7 in
Actual Weight 61.944 kg
- Vital Signs / Lab Results
Temp Pulse Resp BP Pulse Ox
98.2 F 54 16 125/75 97
02/03/24 23:00 02/03/24 23:00 02/03/24 23:00 02/03/24 23:00 02/03/24 23:00
Lab Results - Hematology
02/02/24 02/03/24 02/04/24
13:23 06:59 07:13
WBC 16.4 H 12.0 H 10.0
Lab Results - Chemistry
02/02/24 02/03/24
13:23 06:59
BUN 19 31 H
Creatinine 3.9 H 5.6 H*
Estimated Creat Clear 10
Albumin Cancelled
02/02/24 02/02/24 02/02/24
15:07 17:36 19:00
Lactic Acid 1.7 Cancelled Cancelled
02/02/24 02/03/24 02/03/24
21:36 01:36 05:36
Lactic Acid Cancelled Cancelled Cancelled
Microbiology Results
02/02/24 15:07 Blood Culture - Preliminary
Blood/Venous No Growth in 24 hours- Final report to follow
02/02/24 15:07 Blood Culture - Preliminary
Blood/Venous No Growth in 24 hours- Final report to follow
Therapeutic Drug Monitoring
Random Vancomycin 18.7 ug/ml 02/03/24 06:59
[2024-02-04 08:15] LABS: Blood Urea Nitrogen 44 mg/dl (9-20); Calcium 8.6 mg/dl (8.4-10.2); Carbon Dioxide 22 mmol/L (22-30); Chloride 109 mmol/L (98-107); Estimated Creatinine Clearance 8 ml/min; Glucose 85 mg/dl (70-99); Potassium 4.5 mmol/L (3.5-5.1); Sodium 140 mmol/L (135-145); eGFR 7.83
[2024-02-04] MEDS: PHOSLO 1334 MG PO ×3 (09:20→17:46)
[2024-02-04] MEDS: MIRALAX 17 GRAMS PO (09:20)
[2024-02-04] MEDS: NICODERM TRANSDERMAL 14 MG TRANSDERM (09:21)
[2024-02-04] MEDS: TYLENOL 650 MG PO ×3 (09:21→21:08)
[2024-02-04] MEDS: COLACE 200 MG PO (09:22)
[2024-02-04] MEDS: LIPITOR 10 MG PO (09:22)
[2024-02-04] MEDS: TOPROL XL 50 MG PO (09:22)
[2024-02-04] MEDS: ZYLOPRIM 100 MG PO (09:22)
[2024-02-04] MEDS: FEOSOL 325 MG PO (09:23)
[2024-02-04] MEDS: ProAmatine PO ×3 (09:25→17:47)
--- NOTE | 2024-02-04 11:55 | W.PN.NEPH.PH ---
Today's Communication / Plan
-
HD tomorrow
Assessment/Plan
-
IMP:
Episode of fever
Leukocytosis
Anemia
End-stage renal disease on hemodialysis-since 05/2023-[facility]
Dyslipidemia
Gout
chronic pain with-narcotic dependence
Chronic hypotension on midodrine
ambulatory dysfunction
Insomnia
depression
former smoker
Hypoalbuminemia
h/o BPH
hyperphosphatemia
Plan:
Recent ESRD on HD, treating for URI
hemodynamically stable
cultures negative, abx per primary, note pt has tunneled catheter
monitor hb, at goal, no iron while c/f infection
cont diuretics and midodrine
resume phos binders
HD next on Monday
-
-
Date of Service: February 04, 2024
CC / HPI / ROS
-
Chief Complaint:
ESRD
History of Present Illness:
ESRD on HD MWF via [facility]
had some lightheadedness and sore throat
Review of Systems:
awaiting blood culture data
Labs
-
Labs:
WBC 10.0 10^3/uL (4.8-10.8) 02/04/24 07:13
RBC 2.85 10^6/uL (4.70-6.10) L 02/04/24 07:13
Hgb 9.6 g/dL (13.0-18.0) L 02/04/24 07:13
Hct 28.1 % (39.0-52.0) L 02/04/24 07:13
Plt Count 195 10^3/uL (130-400) 02/04/24 07:13
Sodium 140 mmol/L (135-145) 02/04/24 07:13
Potassium 4.5 mmol/L (3.5-5.1) 02/04/24 07:13
Chloride 109 mmol/L (98-107) H 02/04/24 07:13
Carbon Dioxide 22 mmol/L (22-30) 02/04/24 07:13
BUN 44 mg/dl (9-20) H 02/04/24 07:13
Creatinine 6.9 mg/dL (0.7-1.3) H* 02/04/24 07:13
eGFR 7.83 02/04/24 07:13
Glucose 85 mg/dl (70-99) 02/04/24 07:13
Calcium 8.6 mg/dl (8.4-10.2) 02/04/24 07:13
Albumin Cancelled 02/02/24 13:23
Physical Exam
-
Vital Signs:
Vital Signs
Temp Pulse Resp BP Pulse Ox
98.4 F 91 16 136/69 97
02/04/24 07:00 02/04/24 09:25 02/03/24 23:00 02/04/24 09:25 02/04/24 10:15
Cardiovascular:: Regular rate and rhythm
Respiratory:: Bilateral: CTA
Lung Excursion:: Normal
Abdomen:: Nontender and Soft
Bowel Sounds:: Normal
Extremity Edema:: None: Bilateral:
Kiser Catheter: No
--- NOTE | 2024-02-04 13:35 | W.PN.ID1 ---
Date of Service
Date of Service: February 04, 2024
Today's Communication
stop antibiotics and observe
Assessment / Plan
URI most likely viral
ESRD on HD
- denies further symptoms at this point
- stop antibiotics and follow clinically - if relapse of fevers then get blood cultures x2 while febrile with one set from the line , restart vanc/cefepime and will need to consider line removal
- follow clinically
Chief Complaint
-: Fever
Subjective / Review of Systems
afebrile
bp stable
tolerating current therapies
leukocytosis resolved
k normal
blood cultures neg
'I feel good'
Vital Signs / Physical Exam
Vital Signs
Vital Signs
Temp Pulse Resp BP Pulse Ox
98.4 F 91 16 136/69 97
02/04/24 07:00 02/04/24 09:25 02/04/24 07:00 02/04/24 09:25 02/04/24 10:15
Physical Exam
Constitutional: No Acute Distress
Cardiovascular: Regular Rate and S1/S2; Negative Murmur or Rub
Pulmonary: Clear and Symmetric; Negative Wheezes or Rales
Gastrointestinal: Soft, Non Tender, Non Distended and Normal Bowel Sounds
Skin: Warm and Dry; Negative Rash or Jaundice
Lines: HD Cath
Objective Data
Lab Data
Lab Results
02/04/24 07:13
02/04/24 07:13
Estimated Creat Clear 8 ml/min 02/04/24 07:13
Lactic Acid Cancelled 02/03/24 05:36
Total Bilirubin Cancelled 02/02/24 13:23
AST Cancelled 02/02/24 13:23
ALT Cancelled 02/02/24 13:23
Alkaline Phosphatase Cancelled 02/02/24 13:23
Most recent labs reviewed.
Micro Results:
02/03/24 17:02 Nasal Screen MRSA (PCR) - Final
Nose MRSA not detected - performed by PCR methodology.
02/02/24 15:07 Blood Culture - Preliminary
Blood/Venous No Growth in 24 hours- Final report to follow
02/02/24 15:07 Blood Culture - Preliminary
Blood/Venous No Growth in 24 hours- Final report to follow
[2024-02-04 15:00] VITALS: BP 160/71
[2024-02-04 16:44] VITALS: BP 160/71
[2024-02-04] MEDS: FLOMAX 0.400000000000000022 MG PO (17:47)
[2024-02-04] MEDS: MELATONIN 5 MG PO (21:38)
[2024-02-04 23:00] VITALS: BP 156/75
[2024-02-05 06:00] VITALS: BMI 22.4
[2024-02-05] MEDS: ProAmatine 5 MG PO ×2 (06:08→17:39)
[2024-02-05 07:00] VITALS: BP 162/71
[2024-02-05] MEDS: FEOSOL 325 MG PO (08:39)
[2024-02-05] MEDS: TYLENOL 650 MG PO ×3 (08:39→21:24)
[2024-02-05] MEDS: HEPARIN SC ×3 (08:39→22:19)
[2024-02-05] MEDS: PHOSLO 1334 MG PO ×2 (08:39→17:39)
[2024-02-05] MEDS: ZYLOPRIM 100 MG PO (08:39)
[2024-02-05] MEDS: LIPITOR 10 MG PO (08:39)
[2024-02-05] MEDS: TOPROL XL PO (08:40)
[2024-02-05] MEDS: MIRALAX PO ×2 (08:40→08:44)
[2024-02-05] MEDS: COLACE PO ×2 (08:40→08:44)
[2024-02-05] MEDS: NICODERM TRANSDERMAL 14 MG TRANSDERM (08:41)
--- NOTE | 2024-02-05 11:29 | W.PN.HOSP.TC ---
Today's Communication/Plan
-
Watch off AB
PT OT
Blood cultures are negative .
If no fever with dialysis discharge tomorrow?
Assessment / Plan
Assessment / Plan
02/02/24 15:07 Blood/Venous Blood Culture - Preliminary
No Growth in 24 hours- Final report to follow
02/02/24 15:07 Blood/Venous Blood Culture - Preliminary
No Growth in 24 hours- Final report to follow
CXR: Clear lungs. No significant change compared to prior study.
Denies any chest pain, abdominal pain diarrhea nausea vomiting
Looks nontoxic
CVS: S1-S2 normal
Chest: CTA B/L
Abdomen: Soft, NT / Bowel sounds present
Extremities: No edema, no redness
FINISH SANDER: Non focal exam
#Sepsis:
-With acute metabolic encephalopathy on admission
-CXR clear
-h/o sepsis due to HD cath in September 2023
-was on IVFs, now off
-IV Vanco/Cefepime-infectious disease stopped antibiotics and plan to observe off of antibiotics.
-ID following
-BCxs NGTD. If BCxs NG at 48 hours will likely not need any more abx as likely diagnosis will have been viral URI.
#ESRD: renal following for HD
#Anemia of chronic disease: Hb appears hemoconcentrated
#Hyperlipidemia: Continue statin
#Chronic pain syndrome, chronic opioid use with dependence: Holding narcotics at this time until mentation improves.
#Essential hypertension: Continue beta-ty, holding torsemide
#Gout: Continue allopurinol
#BPH: Continue Flomax
#Chronic hypotension on midodrine
#Insomnia depression-On trazodone and Remeron as OP
#Significant Tobacco use-quit 6 months ago
#Ambulatory dysfunction
#DNR: Patient preference
#DVT Prophylaxis SC Heparin
Anticipated Discharge: Within 24 hours
Subjective/Interval History
-
Date of Service: February 05, 2024
Objective Data
-
Labs:
Laboratory Results
02/05/24
06:00
WBC Pending
Hgb Pending
Hct Pending
Plt Count Pending
Sodium Pending
Potassium Pending
Chloride Pending
Carbon Dioxide Pending
BUN Pending
Creatinine Pending
Glucose Pending
Calcium Pending
Vital Signs:
Vital Signs
Temp Pulse Resp BP Pulse Ox
97.8 F 55 17 162/71 94
02/05/24 07:00 02/05/24 08:40 02/05/24 07:00 02/05/24 07:00 02/05/24 07:00
I&O
02/04/24 02/05/24 02/06/24
06:59 06:59 06:59
Intake Total 720 / 720 1340 / 1340
Output Total 200 / 200 150 / 150
Balance 520 / 520 1190 / 1190
[2024-02-05 13:02] LABS: % Eosinophils 9.1 % (0-6); % Immature Granulocytes 0.6 % (0-0.5); % Monocytes 8.1 % (1.7-9.3); % Neutrophils 68.2 % (42.2-75.2); Absolute Basophils 0.1 10^3/uL (0-0.2); Absolute Eosinophils 0.8 10^3/uL (0-0.7); Absolute Immature Granulocytes 0.1 10^3/uL (0-0.05); Absolute Lymphocytes 1.1 10^3/uL (1.2-3.4); Absolute Monocytes 0.7 10^3/uL (0.1-0.6); Hematocrit 27.3 % (39.0-52.0); Hemoglobin 9.1 g/dL (13.0-18.0); Mean Corp Hgb Conc. 33.3 g/dL (33.0-37.0); Mean Corpuscular Hgb 33.5 pg (27.0-31.0); Mean Corpuscular Volume 100.4 fL (80.0-94.0); Mean Platelet Volume 9.7 fL (7.4-10.4); Nucleated Red Blood Cells % 0 % (-); Platelet Count 212 10^3/uL (130-400); Red Blood Cell Count 2.72 10^6/uL (4.70-6.10); White Blood Cell Count 8.8 10^3/uL (4.8-10.8)
--- NOTE | 2024-02-05 13:31 | W.PN.NEPH.HD ---
Assessment
-
Seen on HD. no complaints. VSS, access ok
Progress Note - Hemodialysis
-
Date of Service: February 05, 2024
Duration: 30 minutes and 3 hours
Potassium Bath: 3
Calcium Bath: 2.5
Opti-Dialyzer: 160
Ultrafiltration: Other (1kg)
Blood Flow: 400
Dialysate Flow: 600
Heparin: 0
EPO: 6000 units
[2024-02-05] MEDS: PHOSLO PO (13:32)
[2024-02-05 13:40] LABS: Blood Urea Nitrogen 56 mg/dl (9-20); Calcium 9.1 mg/dl (8.4-10.2); Carbon Dioxide 22 mmol/L (22-30); Chloride 107 mmol/L (98-107); Estimated Creatinine Clearance 8 ml/min; Glucose 90 mg/dl (70-99); Sodium 142 mmol/L (135-145); eGFR 6.65
[2024-02-05] MEDS: ProAmatine PO (13:43)
--- NOTE | 2024-02-05 14:25 | CM ---
CM spoke with Bailey from [facility], confirmed patient is LTC resident and able to return when medically stable. Patient receiving HD today, per chart, possible discharge tomorrow. CM met with patient bedside, reports no needs to CM at this time.
PT/OT ordered, will need auth to return to facility skilled. CM will continue to follow for all discharge planning needs.
Plan; return to [facility] when medically stable, watch for skilled need from PT/OT evals, will need auth if returning skilled
--- NOTE | 2024-02-05 14:31 | W.PN.ID1 ---
Date of Service
Date of Service: February 05, 2024
Today's Communication
remains well off of antibiotics
stable for dc from ID perspective
Assessment / Plan
URI most likely viral
ESRD on HD
remains well off of antibiotics
stable for dc from ID perspective
Chief Complaint
-: Fever
Subjective / Review of Systems
afebrile
bp stable
without leukocytosis
K normal
Vital Signs / Physical Exam
Vital Signs
Vital Signs
Temp Pulse Resp BP Pulse Ox
97.8 F 55 17 162/71 94
02/05/24 07:00 02/05/24 08:40 02/05/24 07:00 02/05/24 07:00 02/05/24 07:00
Physical Exam
Constitutional: No Acute Distress
Cardiovascular: Regular Rate and S1/S2; Negative Murmur or Rub
Pulmonary: Clear and Symmetric; Negative Wheezes or Rales
Gastrointestinal: Soft, Non Tender, Non Distended and Normal Bowel Sounds
Skin: Warm and Dry; Negative Rash or Jaundice
Lines: HD Cath
Objective Data
Lab Data
Lab Results
02/05/24 12:39
02/05/24 12:39
Estimated Creat Clear 8 ml/min 02/05/24 12:39
Lactic Acid Cancelled 02/03/24 05:36
Total Bilirubin Cancelled 02/02/24 13:23
AST Cancelled 02/02/24 13:23
ALT Cancelled 02/02/24 13:23
Alkaline Phosphatase Cancelled 02/02/24 13:23
Most recent labs reviewed.
Micro Results:
02/02/24 15:07 Blood Culture - Preliminary
Blood/Venous No Growth in 48 hours- Final report to follow
02/02/24 15:07 Blood Culture - Preliminary
Blood/Venous No Growth in 48 hours- Final report to follow
02/03/24 17:02 Nasal Screen MRSA (PCR) - Final
Nose MRSA not detected - performed by PCR methodology.
[2024-02-05 15:00] VITALS: BP 126/83
[2024-02-05] MEDS: FLOMAX 0.400000000000000022 MG PO (17:39)
[2024-02-05 19:22] LABS: Hepatitis B Surface Antigen Negative (Negative)
[2024-02-05 19:39] LABS: Hepatitis B Surface Antibody Negative
[2024-02-05 23:00] VITALS: BP 158/76
[2024-02-06 06:00] VITALS: BMI 22.0
[2024-02-06 06:33] LABS: % Basophils 1.4 % (0-2); % Eosinophils 9.7 % (0-6); % Immature Granulocytes 0.7 % (0-0.5); % Lymphocytes 16.7 % (20.5-51.1); % Monocytes 10.3 % (1.7-9.3); % Neutrophils 61.2 % (42.2-75.2); Absolute Basophils 0.1 10^3/uL (0-0.2); Absolute Eosinophils 0.8 10^3/uL (0-0.7); Absolute Immature Granulocytes 0.1 10^3/uL (0-0.05); Absolute Lymphocytes 1.3 10^3/uL (1.2-3.4); Absolute Monocytes 0.8 10^3/uL (0.1-0.6); Absolute Neutrophils 4.9 10^3/uL (1.4-6.5); Hematocrit 30.8 % (39.0-52.0); Hemoglobin 10.2 g/dL (13.0-18.0); Mean Corp Hgb Conc. 33.1 g/dL (33.0-37.0); Mean Corpuscular Hgb 33.1 pg (27.0-31.0); Nucleated Red Blood Cells % 0 % (-); Platelet Count 232 10^3/uL (130-400); Red Blood Cell Count 3.08 10^6/uL (4.70-6.10); Red Cell Dist. Width 13.9 % (11.5-14.5)
[2024-02-06 07:00] VITALS: BP 158/76
[2024-02-06 07:12] LABS: Blood Urea Nitrogen 26 mg/dl (9-20); Calcium 8.8 mg/dl (8.4-10.2); Carbon Dioxide 26 mmol/L (22-30); Chloride 102 mmol/L (98-107); Estimated Creatinine Clearance 14 ml/min; Glucose 84 mg/dl (70-99); Potassium 4.6 mmol/L (3.5-5.1); Sodium 139 mmol/L (135-145)
[2024-02-06 07:25] LABS: Hepatitis B Surface Antigen Negative (Negative)
[2024-02-06] MEDS: NICODERM TRANSDERMAL 14 MG TRANSDERM (08:44)
[2024-02-06] MEDS: TYLENOL 650 MG PO (08:45)
[2024-02-06] MEDS: PHOSLO 1334 MG PO ×2 (08:45→12:05)
[2024-02-06] MEDS: FEOSOL 325 MG PO (08:45)
[2024-02-06] MEDS: ZYLOPRIM 100 MG PO (08:45)
[2024-02-06] MEDS: TOPROL XL 50 MG PO (08:45)
[2024-02-06] MEDS: LIPITOR 10 MG PO (08:45)
[2024-02-06] MEDS: ProAmatine PO ×2 (08:46→11:15)
[2024-02-06] MEDS: MIRALAX 17 GRAMS PO (08:47)
[2024-02-06] MEDS: COLACE PO (08:47)
[2024-02-06] MEDS: HEPARIN SC (08:48)
[2024-02-06 09:16] VITALS: BP 141/80; BP 157/85; PULSE 63; PULSE 64; O2SAT 94; O2SAT 95
--- NOTE | 2024-02-06 10:40 | CM ---
CM following for d/c planning
Pt medically ready for discharge
From [facility] - spoke with Bailey [phone] at facility - can accept today
Plan - return to [facility]
R - [phone] - Request 2nd floor Nurse's station
F - [phone]
--- NOTE | 2024-02-06 12:08 | W.PN.HOSP.TC ---
Today's Communication/Plan
-
Discharge
Assessment / Plan
Assessment / Plan
02/02/24 15:07 Blood/Venous Blood Culture - Preliminary
No Growth in 24 hours- Final report to follow
02/02/24 15:07 Blood/Venous Blood Culture - Preliminary
No Growth in 24 hours- Final report to follow
CXR: Clear lungs. No significant change compared to prior study.
Denies any chest pain, abdominal pain diarrhea nausea vomiting
Looks nontoxic
CVS: S1-S2 normal
Chest: CTA B/L
Abdomen: Soft, NT / Bowel sounds present
Extremities: No edema, no redness
PAYROLL BOOKKEEPER: Non focal exam
#Sepsis:
-With acute metabolic encephalopathy on admission
-CXR clear
-h/o sepsis due to HD cath in September 2023
-was on IVFs, now off
-IV Vanco/Cefepime-infectious disease stopped antibiotics and plan to observe off of antibiotics.
-ID following
-BCxs NGTD. If BCxs NG at 48 hours will likely not need any more abx as likely diagnosis will have been viral URI.
#ESRD: renal following for HD
#Anemia of chronic disease: Hb appears hemoconcentrated
#Hyperlipidemia: Continue statin
#Chronic pain syndrome, chronic opioid use with dependence: Holding narcotics at this time until mentation improves.
#Essential hypertension: Continue beta-ty, holding torsemide
#Gout: Continue allopurinol
#BPH: Continue Flomax
#Chronic hypotension on midodrine
#Insomnia depression-On trazodone and Remeron as OP
#Significant Tobacco use-quit 6 months ago
#Ambulatory dysfunction
#DNR: Patient preference
#DVT Prophylaxis SC Heparin
Spoke to sister and updated.
D/W Case management
Discharge cordination time 32 min
Anticipated Discharge: Today
Subjective/Interval History
-
Date of Service: February 06, 2024
Objective Data
-
Labs:
Laboratory Results
02/06/24
05:42
WBC 8.0
Hgb 10.2 L
Hct 30.8 L
Plt Count 232
Sodium 139
Potassium 4.6
Chloride 102
Carbon Dioxide 26
BUN 26 H
Creatinine 4.3 H*
Glucose 84
Calcium 8.8
Vital Signs:
Vital Signs
Temp Pulse Resp BP Pulse Ox
97.8 F 66 17 130/60 94
02/06/24 07:00 02/06/24 08:45 02/06/24 07:00 02/06/24 11:15 02/06/24 10:30
I&O
02/05/24 02/06/24 02/07/24
06:59 06:59 06:59
Intake Total 1340 / 1340 660 / 660
Output Total 150 / 150
Balance 1190 / 1190 660 / 660
--- NOTE | 2024-02-06 12:12 | W.DS.TRANS ---
Addendum entered and electronically signed by Nunu Mejia MD 02/06/24 16:18:
dictn- [id number]
Original Note:
DC Summary - Soda Dialyzer
-
Discharge Instructions:
Discharge Diagnosis/Procedures Fever, end-stage renal disease, anemia,
hyperlipidemia, chronic pain, hypertension, gout
, benign prostatic hypertrophy, chronic
hypotension, insomnia, depression,
Diet Restrict fluids to 48 oz,2 Gram Sodium
Activity As tolerated
Driving Restrictions No driving
Other Services PT,OT
Instructions:
Stand-Alone Forms:
Changes to Home Medications: Yes
Discharge Medications:
DC Medications w/original date entered in [employer]
acetaminophen 325 mg tablet 650 mg PO Q8H PRN fever>100.4 06/08/23
atorvastatin 10 mg tablet 10 mg PO DAILY High Cholesterol 06/08/23
bisacodyl 10 mg rectal suppository (Dulcolax (bisacodyl)) 10 mg WI DAILY PRN if sorbitol is ineffective 06/08/23
calcium acetate(phosphat bind) 667 mg capsule 1,334 mg PO MEALS Kidney Disease 06/08/23
docusate sodium 100 mg capsule (Colace) 200 mg PO DAILY Constipation 06/08/23
ferrous sulfate 325 mg (65 mg iron) tablet 325 mg PO DAILY Supplement 06/08/23
metoprolol succinate 50 mg tablet,extended release 24 hr 50 mg PO DAILY Blood Pressure 06/08/23
midodrine 5 mg tablet 5 mg PO MOWEFR@0600 Blood Pressure 06/08/23
polyethylene glycol 3350 17 gram oral powder packet (Miralax) 17 g PO DAILY Constipation 06/08/23
sorbitol 70 % solution 30 ml PO DAILYPRN PRN constipation 06/08/23
tamsulosin 0.4 mg capsule 0.4 mg PO QPM Urinary Issue 06/08/23
torsemide 20 mg tablet 20 mg PO Q48H Fluid Retention/Swelling 06/08/23
mirtazapine 15 mg tablet 22.5 mg PO HS Mental Health/Anxiety 09/20/23
melatonin 5 mg tablet 5 mg PO HS Sleep 02/02/24
midodrine 5 mg tablet 5 mg PO BID@1200,1800 Blood Pressure 02/02/24
midodrine 5 mg tablet 5 mg PO SUTUTHSA@0900 Blood Pressure 02/02/24
polyethylene glycol 3350 17 gram oral powder packet (Miralax) 17 g PO DAILYPRN PRN constipation 02/02/24
sodium polystyrene sulfonate 15 gram/60 mL oral suspension 60 ml PO DAILYPRN PRN missed dialysis 02/02/24
allopurinol 100 mg tablet 100 mg PO DAILY Gout #30 tabs 02/05/24
trazodone 100 mg tablet 50 mg (1/2 x 100 mg) PO HS Sleep #0 tabs 02/05/24
sennosides 8.6 mg capsule (senna) 8.6 mg PO HS Constipation #30 caps 02/06/24
Home Medication Changes
new
Senna
Stopped Oxycodone
Pending Results: No
--- NOTE | 2024-02-06 12:18 | W.PN.NEPH.PH ---
Today's Communication / Plan
-
dc
Assessment/Plan
-
IMP:
Episode of fever
Leukocytosis
Anemia
End-stage renal disease on hemodialysis-since 05/2023-[facility]
Dyslipidemia
Gout
chronic pain with-narcotic dependence
Chronic hypotension on midodrine
ambulatory dysfunction
Insomnia
depression
former smoker
Hypoalbuminemia
h/o BPH
hyperphosphatemia
Plan:
next HD tomorrow at OP unit
for dc
-
-
Date of Service: February 06, 2024
CC / HPI / ROS
-
Chief Complaint:
ESRD
History of Present Illness:
ESRD on HD MWF via [facility]
tolerated HD yesterday
BP stable
no fevers, off abx
Review of Systems:
no CP/SOB
Labs
-
Labs:
WBC 8.0 10^3/uL (4.8-10.8) 02/06/24 05:42
RBC 3.08 10^6/uL (4.70-6.10) L 02/06/24 05:42
Hgb 10.2 g/dL (13.0-18.0) L 02/06/24 05:42
Hct 30.8 % (39.0-52.0) L 02/06/24 05:42
Plt Count 232 10^3/uL (130-400) 02/06/24 05:42
Sodium 139 mmol/L (135-145) 02/06/24 05:42
Potassium 4.6 mmol/L (3.5-5.1) 02/06/24 05:42
Chloride 102 mmol/L (98-107) 02/06/24 05:42
Carbon Dioxide 26 mmol/L (22-30) 02/06/24 05:42
BUN 26 mg/dl (9-20) H 02/06/24 05:42
Creatinine 4.3 mg/dL (0.7-1.3) H* 02/06/24 05:42
eGFR 13.80 02/06/24 05:42
Glucose 84 mg/dl (70-99) 02/06/24 05:42
Calcium 8.8 mg/dl (8.4-10.2) 02/06/24 05:42
Albumin Cancelled 02/02/24 13:23
Physical Exam
-
Vital Signs:
Vital Signs
Temp Pulse Resp BP Pulse Ox
97.8 F 66 17 130/60 94
02/06/24 07:00 02/06/24 08:45 02/06/24 07:00 02/06/24 11:15 02/06/24 10:30
Cardiovascular:: Regular rate and rhythm
Respiratory:: Bilateral: Coarse
Lung Excursion:: Normal
Abdomen:: Nontender and Soft
Bowel Sounds:: Normal
Extremity Edema:: None: Bilateral:
--- NOTE | 2024-02-06 12:46 | PTCARENOTE ---
Attempted to call report to [facility] twice, no one picked up either time. Pt. being picked up at 1400, medication list updated
[2024-02-06 13:20] VITALS: BP 158/76
--- NOTE | 2024-02-06 14:03 | W.PN.ID1 ---
Date of Service
Date of Service: February 06, 2024
Today's Communication
remains well off of antibiotics
stable for dc from ID perspective
Assessment / Plan
URI most likely viral- resolved
ESRD on HD
remains well off of antibiotics
stable for dc from ID perspective
Chief Complaint
-: Fever
Subjective / Review of Systems
afebrile
bp stable
no complaints
wbc remains normal
cr stable
blood cultures negative
Vital Signs / Physical Exam
Vital Signs
Vital Signs
Temp Pulse Resp BP Pulse Ox
98.0 F 59 18 158/76 97
02/06/24 13:20 02/06/24 13:20 02/06/24 13:20 02/06/24 13:20 02/06/24 13:20
Physical Exam
Constitutional: No Acute Distress
Cardiovascular: Regular Rate and S1/S2; Negative Murmur or Rub
Pulmonary: Clear and Symmetric; Negative Wheezes or Rales
Gastrointestinal: Soft, Non Tender, Non Distended and Normal Bowel Sounds
Skin: Warm and Dry; Negative Rash or Jaundice
Objective Data
Lab Data
Lab Results
02/06/24 05:42
02/06/24 05:42
Estimated Creat Clear 14 ml/min 02/06/24 05:42
Lactic Acid Cancelled 02/03/24 05:36
Total Bilirubin Cancelled 02/02/24 13:23
AST Cancelled 02/02/24 13:23
ALT Cancelled 02/02/24 13:23
Alkaline Phosphatase Cancelled 02/02/24 13:23
Most recent labs reviewed.
Micro Results:
02/02/24 15:07 Blood Culture - Preliminary
Blood/Venous No Growth in 72 hours- Final report to follow
02/02/24 15:07 Blood Culture - Preliminary
Blood/Venous No Growth in 72 hours- Final report to follow
02/03/24 17:02 Nasal Screen MRSA (PCR) - Final
Nose MRSA not detected - performed by PCR methodology.
--- NOTE | 2024-02-06 16:17 | W.DS.TRANS ---
DC Summary - [employer]
-
Discharge Instructions:
Discharge Diagnosis/Procedures Fever, end-stage renal disease, anemia,
hyperlipidemia, chronic pain, hypertension, gout
, benign prostatic hypertrophy, chronic
hypotension, insomnia, depression,
Diet Restrict fluids to 48 oz,2 Gram Sodium
Activity As tolerated
Driving Restrictions No driving
Other Services PT,OT
Instructions:
Stand-Alone Forms:
Changes to Home Medications: Yes
Discharge Medications:
DC Medications w/original date entered in [email or web address]
acetaminophen 325 mg tablet 650 mg PO Q8H PRN fever>100.4 06/08/23
atorvastatin 10 mg tablet 10 mg PO DAILY High Cholesterol 06/08/23
bisacodyl 10 mg rectal suppository (Dulcolax (bisacodyl)) 10 mg [place] DAILY PRN if sorbitol is ineffective 06/08/23
calcium acetate(phosphat bind) 667 mg capsule 1,334 mg PO MEALS Kidney Disease 06/08/23
docusate sodium 100 mg capsule (Colace) 200 mg PO DAILY Constipation 06/08/23
ferrous sulfate 325 mg (65 mg iron) tablet 325 mg PO DAILY Supplement 06/08/23
metoprolol succinate 50 mg tablet,extended release 24 hr 50 mg PO DAILY Blood Pressure 06/08/23
midodrine 5 mg tablet 5 mg PO MOWEFR@0600 Blood Pressure 06/08/23
polyethylene glycol 3350 17 gram oral powder packet (Miralax) 17 g PO DAILY Constipation 06/08/23
sorbitol 70 % solution 30 ml PO DAILYPRN PRN constipation 06/08/23
tamsulosin 0.4 mg capsule 0.4 mg PO QPM Urinary Issue 06/08/23
torsemide 20 mg tablet 20 mg PO Q48H Fluid Retention/Swelling 06/08/23
mirtazapine 15 mg tablet 22.5 mg PO HS Mental Health/Anxiety 09/20/23
melatonin 5 mg tablet 5 mg PO HS Sleep 02/02/24
midodrine 5 mg tablet 5 mg PO BID@1200,1800 Blood Pressure 02/02/24
midodrine 5 mg tablet 5 mg PO SUTUTHSA@0900 Blood Pressure 02/02/24
polyethylene glycol 3350 17 gram oral powder packet (Miralax) 17 g PO DAILYPRN PRN constipation 02/02/24
sodium polystyrene sulfonate 15 gram/60 mL oral suspension 60 ml PO DAILYPRN PRN missed dialysis 02/02/24
allopurinol 100 mg tablet 100 mg PO DAILY Gout #30 tabs 02/05/24
trazodone 100 mg tablet 50 mg (1/2 x 100 mg) PO HS Sleep #0 tabs 02/05/24
sennosides 8.6 mg capsule (senna) 8.6 mg PO HS Constipation #30 caps 02/06/24
Home Medication Changes
senna new
Oxycodone stopped
Pending Results: No
== END 2024-02-06 14:42 | DRG 871 ==
LOC: 3 WEST ACU 16:19
PROVIDERS: Registered Nurse; Specialist; ADMITTING PHYSICIAN Internal Medicine; ATTENDING PHYSICIAN Hospitalist; CONSULT PHYSICIAN Student in an Organized Health Care Education/Training Program; EMERGENCY PHYSICIAN Emergency Medicine; FAMILY PHYSICIAN Internal Medicine
PROC: 5A1D70Z Performance of Urinary Filtration, Intermittent, Less than 6 Hours Per Day (ICD-10-PCS; 2024-02-05)
DX: A41.9 Sepsis, unspecified organism (principal); G93.41 Metabolic encephalopathy; N18.6 End stage renal disease; E46 Unspecified protein-calorie malnutrition; I12.0 Hypertensive chronic kidney disease with stage 5 chronic kidney disease or end stage renal disease; F11.20 Opioid dependence, uncomplicated; G89.4 Chronic pain syndrome; N40.0 Benign prostatic hyperplasia without lower urinary tract symptoms; F17.200 Nicotine dependence, unspecified, uncomplicated; E78.00 Pure hypercholesterolemia, unspecified; F32.A Depression, unspecified; I95.89 Other hypotension; E83.39 Other disorders of phosphorus metabolism; G47.00 Insomnia, unspecified; R26.2 Difficulty in walking, not elsewhere classified; B34.9 Viral infection, unspecified; E88.09 Other disorders of plasma-protein metabolism, not elsewhere classified; D63.1 Anemia in chronic kidney disease; M10.9 Gout, unspecified; Z96.651 Presence of right artificial knee joint; Z66 Do not resuscitate; Z99.2 Dependence on renal dialysis; Z86.73 Personal history of transient ischemic attack (TIA), and cerebral infarction without residual deficits; Z11.52 Encounter for screening for COVID-19; Z68.21 Body mass index [BMI] 21.0-21.9, adult
CPT/HCPCS: 71046; 80048; 80202; 83605; 85025; 86706; 87040; 87340; 87641; 87811; 96361; 96374; 97162; 97166; 99285; 99406; P9047; Q5106